=== PATIENT | male | born 1995 | race Caucasian/White ===

== ENCOUNTER 2016-08-28 23:55 | Emergency (ER) | payer BC, OTHER ==
[~2016-08-28] VITALS: Ht 185.4 cm; Wt 85.1 kg
[~2016-08-28 23:55] MED LIST: BIOFTAB30 PO; ECHI125C PO
[2016-08-28 23:58] VITALS: TEMP 36.9; Ht 185.4 cm; Wt 85.1 kg
[2016-08-29] MEDS ORDERED: PROPARACAINE HCL 0.5% OP SOLN 15 ML BTL OP STA (00:48)
[2016-08-29] MEDS ORDERED: DEXAMETHASONE SOD INJ 10 MG/ML VIAL IM ONE (01:00)
[2016-08-29] MEDS ORDERED: PRED50TA PO (01:42)
--- NOTE | 2016-08-29 01:43 | EMERGENCY ROOM VISIT NOTE ---
History First contact with patient: 00:18 Chief Complaint: EYE ASSESSMENT Stated Complaint: POISON OF FACE, TREATMENT CREAM GOT INTO R EYE History of Present Illness The patient is a 20 year old male who presents to the Emergency Department by private vehicle for evaluation of poison to the RIGHT-sided face and eye. He reports that while working in the [employer] today, he developed poison to the RIGHT- sided face. He use topical lotion which she is concerned got into his eye causing irritation and some mild blurry vision. He reports a significant reaction to poison in the past. The topical medication is provided minimal relief. The patient denies any pain rating his discomfort a 0/10. He denies any headaches, dizziness, lightheadedness, double vision, nausea, vomiting, or neck pain/stiffness. Review of Systems A complete 10-point Review of Systems was discussed with the patient, with pertinent positives and negatives listed in the History of Present Illness. All remaining Review of Systems questions can be considered negative unless otherwise specified. Social History Smoking Status: Never Smoker Smokeless Tobacco Use: No Drug Use: none Marital Status: single Housing Status: lives with family Occupation Status: employed Current/Historical Medications Scheduled Prednisone (Prednisone), 50 MG PO DAILY Allergies Coded Allergies: No Known Allergies (Unverified , 08/29/16) Physical Exam Vital Signs Date Time Temp Pulse Resp B/P Pulse Ox O2 Delivery O2 Flow Rate FiO2 08/29/16 01:47 71 20 137/66 96 08/28/16 23:58 36.9 74 18 168/104 99 Room Air Right Eye Acuity: 20/70 Left Eye Acuity: 20/25 Pain Rating (0-10): 0 Physical Exam VITAL SIGNS - Vital signs and nursing notes were reviewed. GENERAL - 20-year-old male appearing his stated age. Communicates well with provider and answers questions appropriately. SKIN - erythematous raised rash noted to the RIGHT-sided periorbital area. Blanchable. No vesicles. HEAD - Normocephalic, Atraumatic. No Mojica's Sign or Raccoon's Eyes. No depressed skull fractures palpable. EYES - PERRL with EOMI bilaterally. Sclera without noticeable foreign body or excoriations. Mild injection noted in the RIGHT eye. Without subconjunctival hemorrhage. Palpebral conjunctiva pink and moist with no injection or discharge noted. Slit lamp examination performed as further described. EARS - No deformities of external structures noted on gross examination bilaterally. Handle of malleus, umbo, cone of light, pars tensa/flaccid all easily visualized. NOSE - Midline and without cyanosis. Without discharge. MOUTH/OROPHARYNX - Without perioral cyanosis. Tongue midline with equal elevation of palate bilaterally. No tonsillar hypertrophy, erythema, or exudates noted. Good dentition noted. NECK - FROM assessed. No cervical lymphadenopathy noted. Medical Decision & Procedures Medications Administered Medications (Trade) Dose Ordered Sig/Carmen Route Start Time Stop Time Status Last Admin Dose Admin Proparacaine HCl (Alcaine 0.5% Oph Soln) 2 drops NOW STAT OP 08/29/16 00:48 08/29/16 00:49 DC 08/29/16 00:54 2 DROPS Dexamethasone Sodium Phosphate (Decadron Inj) 10 mg NOW ONCE IM 08/29/16 01:00 08/29/16 01:01 DC 08/29/16 00:54 10 MG Procedure Slit Lamp Examination was performed of the RIGHT eye(s). Alcaine drops were applied to the affected eye(s) for proper anesthetization. The affected eye(s) were stained with Fluorescein stain to precipitate adequate visualization of any conjunctival/scleral excoriations or ulcers. The patient's face was comfortably rested on the chin guard of the slit lamp apparatus. The lights were dimmed and the affected eye(s) were thoroughly examined under microscopy using the blue light. No uptake was present throughout. No dendritic lesions. Additionally, the eye(s) were examined under microscopy using the regular light. Close examination revealed no foreign bodies. No hyphema or hypopyon. Patient tolerated the procedure well and no complications were met. ED Course Patient was seen and evaluated by myself. Slit-lamp exam was performed. No dendritic lesions or foreign bodies noted to the RIGHT eye. The patient was treated with 10 mg Decadron intramuscularly for his rhus dermatitis. He was placed on prednisone for home. He will follow-up with his primary care provider from today's visit. He will return for any changing/worsening symptoms. Patient discharged home afebrile and in good condition. Medical Decision Given the patient's presentation and stated complaints, I did elect to perform the above-mentioned workup. The patient presents today with a rash to the RIGHT -sided eye. There are no didn't drink lesions or concern for foreign bodies and the affected eye. The patient is likely experiencing a rhus dermatitis. He will be treated with steroids. He received initial dose of Decadron in the emergency department. The patient will follow-up with his primary care provider or return for any changing/worsening symptoms. Patient discharged home afebrile and in good condition. In the evaluation and treatment of this patient, the following differential diagnoses were considered: Corneal Abrasion, Conjunctivitis, Eye Contusion, Globe Injury, Orbital Floor Injury (Blowout Fracture), Corneal Ulcer, Keratitis , Herpes Zoster Opthalmic, Blepharitis, Orbital Cellulitis, Iritis, Scleritis/ Episcleritis, Uveitis, Temporal Arteritis, Subconjunctival Hemorrhage. Impression Primary Impression: Contact dermatitis and eczema due to plant Additional Impression: Irritation of eye Departure Information Dispostion Home / Self-Care Condition GOOD Prescriptions Prednisone (Prednisone) 50 Mg Tab 50 MG PO DAILY for 4 Days, #4 TAB Prov: Rigo Person PA-C 08/29/16 Referrals Dami Ray M.D. (PCP) Patient Instructions ED Dermatitis Contact, [facility] Additional Instructions You have been treated in the Emergency Department today for your Rash ( Dermatitis). You have been prescribed Prednisone. This is a steroid which will help decrease your inflammation, redness, and itch. Take this medicine as prescribed. Take the ENTIRE 4 day course. It is best to take steroids early in the morning as PM dosing can affect your sleeping patterns. You should take Zantac (ranitidine) 75 mg orally 2 times per day for the next week. You can find this medicine [id number]. Zantac can help reduce your symptoms. It should be taken for an entire week or until symptoms have subsided. You should take Benadryl (diphenhydramine) 25-50 mg every 6 hours for the next 3 days. You can find this medicine [id number]. Benadryl can help reduce your symptoms. You should take it for the next 3 days or until your symptoms have subsided. Be aware that Benadryl can make you drowsy. As with any Emergency Department visit, you should follow-up with your Primary Care Provider in 3-4 days for reevaluation from today's visit. Return to the Emergency Department if your symptoms persists despite the above outlined treatment plan or if you experience the following symptoms: worsening of your rash, uncontrollable itching, intractable pain, wheezing, shortness of breath, or dizziness. Problem Qualifiers
[2016-08-29 01:47] VITALS: BP 137/66; PULSE 71; O2SAT 96
== END 2016-08-29 01:47 | disposition home or self-care (01) ==
LOC: C.EDB 23:56 → C.EDA 08-29 01:47
DX: L25.5 Unspecified contact dermatitis due to plants, except food (principal); H57.9 Unspecified disorder of eye and adnexa